=== PATIENT | female | born 1980 | race Caucasian/White ===

== ENCOUNTER 2021-03-30 08:29 | Observation (INO) ==
[2021-03-30] MEDS ORDERED: 0.9 % Sodium Chloride 1,000 ML IVC ONE (08:41)
[2021-03-30 09:22] LABS: Basophils # 0.1 K/mcL (0.0-0.2); Basophils % 0.6 %; Eosinophils # 0.1 K/mcL (0.0-0.6); Eosinophils % 0.6 %; Hemoglobin 6.1 g/dL (11.5-15.4); Immature Granulocytes % 1.3 % (0-4); Lymphocytes # 1.1 K/mcL (0.6-4.6); Lymphocytes % 7.5 %; Mean Corpuscular HGB Conc 25.4 g/dL (31.6-35.5); Mean Corpuscular Hemoglobin 15.1 pg (28.0-33.3); Mean Corpuscular Volume 59.4 fL (83.0-100.0); Mean Platelet Volume 9.1 fL (9.4-12.4); Monocytes # 1.2 K/mcL (0.0-1.3); Monocytes % 8.2 %; Neutrophils # 11.6 K/mcL (1.6-8.9); Nucleated Red Blood Cells 0.6 /100 WBC (0); Platelet Count 536 K/mcL (140-400); Red Blood Count 4.04 M/mcL (3.82-4.97); Segmented Neutrophils % 81.8 %; White Blood Count 14.2 K/mcL (4.3-11.1)
[2021-03-30 09:29] LABS: BUN/Creatinine Ratio 11 (6-26); Blood Urea Nitrogen 9 mg/dL (6-20); Calcium 8.6 mg/dL (8.6-10.3); Carbon Dioxide 21 mEq/L (23-29); Chloride 105 mEq/L (98-107); Glucose 108 mg/dL (70-105); Osmolality,Calculated 279 (280-300); Potassium 3.8 mEq/L (3.5-5.1); Sodium 135 mEq/L (136-145); eGFR For African Americans > 60 (> 60); eGFR For Non-African Americans > 60 (> 60)
[2021-03-30 09:30] LABS: Troponin I < 0.03 ng/mL (< 0.04)
[2021-03-30 09:49] LABS: Influenza A PCR Negative (Negative); Influenza B PCR Negative (Negative); Resp. Syncytial Virus PCR Negative (Negative)
[2021-03-30] MEDS ORDERED: Isovue-370 500 ML BOTTLE IVP ONE (10:22)
[2021-03-30 10:26] LABS: Bacteria,Urine Few per hpf (None-Few); Bilirubin,Urine Negative (Negative); Blood,Urine Large (Negative); Clarity,Urine Turbid (Clear); Color,Urine Light-Orange (Yellow); Glucose,Urine (UA) Normal (Normal); Ketones,Urine Negative (Negative); Leukocyte Esterase,Urine Small (Negative); Mucus,Urine Many per lpf (None-Few); Nitrite,Urine Negative (Negative); Protein,Urine 30 mg/dL (Neg-Trace); RBC,Urine TNTC per hpf (0-3); Specific Gravity,Urine 1.011 (1.010-1.025); Urobilinogen,Urine Normal (Normal); WBC,Urine 15-30 per hpf (0-3)
[2021-03-30 11:08] LABS: SARS-CoV-2 by PCR (In House) Positive (Negative)
[2021-03-30] MEDS ORDERED: 0.9 % Sodium Chloride 250 ML ONE (12:31)
[2021-03-30 16:49] LABS: Hematocrit 22.9 % (35.3-44.9); Hemoglobin 6.1 g/dL (11.5-15.4); Mean Corpuscular HGB Conc 26.6 g/dL (31.6-35.5); Mean Corpuscular Hemoglobin 16.6 pg (28.0-33.3); Mean Corpuscular Volume 62.2 fL (83.0-100.0); Platelet Count 427 K/mcL (140-400); Red Blood Count 3.68 M/mcL (3.82-4.97); Red Cell Distribution Width 23.1 % (11.5-14.5); White Blood Count 8.2 K/mcL (4.3-11.1)
[2021-03-30] MEDS ORDERED: Ondansetron 4 MG/2 ML VIAL IVP PRN (17:01)
[2021-03-30] MEDS ORDERED: Naloxone 0.4 MG/ML INJ IVP PRN (17:01)
[2021-03-30] MEDS ORDERED: Acetaminophen 325 MG TABLET PO PRN (17:01)
[2021-03-30] MEDS ORDERED: Iron Sucrose Complex 400 MG in 0.9 % Sodium Chloride 250 ML IVPB ONE (17:07)
[2021-03-30] MEDS ORDERED: 0.9 % Sodium Chloride 250 ML IVC SCH (17:15)
[2021-03-30 17:54] LABS: INR 1.2; Prothrombin Time 13.2 Seconds (9.4-12.1)
[2021-03-30 23:34] LABS: Platelet Count 381 K/mcL (140-400)
[2021-03-30 23:35] LABS: Hematocrit 25.3 % (35.3-44.9); Hemoglobin 7.2 g/dL (11.5-15.4); Mean Corpuscular HGB Conc 28.5 g/dL (31.6-35.5); Mean Corpuscular Hemoglobin 18.3 pg (28.0-33.3); Mean Corpuscular Volume 64.4 fL (83.0-100.0); Mean Platelet Volume 8.8 fL (9.4-12.4); Red Blood Count 3.93 M/mcL (3.82-4.97); Red Cell Distribution Width 25.9 % (11.5-14.5); White Blood Count 9.3 K/mcL (4.3-11.1)
[2021-03-31 07:49] LABS: Hemoglobin 7.6 g/dL (11.5-15.4); Mean Corpuscular HGB Conc 27.1 g/dL (31.6-35.5); Mean Corpuscular Hemoglobin 17.6 pg (28.0-33.3); Mean Platelet Volume 8.9 fL (9.4-12.4); Platelet Count 366 K/mcL (140-400); Red Blood Count 4.31 M/mcL (3.82-4.97); Red Cell Distribution Width 26.1 % (11.5-14.5); White Blood Count 8.6 K/mcL (4.3-11.1)
[2021-03-31 08:08] LABS: BUN/Creatinine Ratio 11 (6-26); Blood Urea Nitrogen 7 mg/dL (6-20); Calcium 8.2 mg/dL (8.6-10.3); Carbon Dioxide 23 mEq/L (23-29); Chloride 108 mEq/L (98-107); Glucose 78 mg/dL (70-105); Osmolality,Calculated 283 (280-300); Potassium 3.8 mEq/L (3.5-5.1); Sodium 138 mEq/L (136-145); eGFR For African Americans > 60 (> 60); eGFR For Non-African Americans > 60 (> 60)
[2021-03-31] MEDS ORDERED: Iron Sucrose Complex 400 MG in 0.9 % Sodium Chloride 250 ML IVPB ONE (09:13)
[2021-03-31 16:57] LABS: Hematocrit 28.3 % (35.3-44.9); Hemoglobin 7.9 g/dL (11.5-15.4)
[2021-04-01 03:08] VITALS: O2SAT 100
[2021-04-01 06:10] LABS: Hematocrit 29.7 % (35.3-44.9); Hemoglobin 8.2 g/dL (11.5-15.4)
[2021-04-01 07:40] VITALS: BP 109/74; PULSE 82; TEMP 97.9
== END 2021-04-01 10:08 | disposition home or self-care (01) ==
LOC: 3BNU 08:29 → EMEROOARM 08:29 → SUATTDRO 17:45 → 3BNU 18:53
PROVIDERS: ADMIT Internal Medicine; ATTEND Family Medicine